=== PATIENT | female | born 1965 | race Caucasian/White ===

== ENCOUNTER 2017-01-02 17:24 | Emergency (ER) | payer BC ==
[2017-01-02 17:41] VITALS: BP 98/58
--- NOTE | 2017-01-02 18:27 | UC ---
Complaint Female HPI - HPI Summary HPI Summary: complaint of pain with urination that started 2 days ago every time she urinates she still fells that she has to urinate increase in urgency and frequency denies fever but has had chills denies back pain and abdominal pain hasn't taken any medication for pain and discomfort - History Of Current Complaint Chief Complaint: UCGU Stated Complaint: UTI Time Seen by Provider: 01/02/17 18:06 Hx Obtained From: Patient - Allergies/Home Medications Allergies/Adverse Reactions: Allergies Allergy/AdvReac Type Severity Reaction Status Date / Time Meperidine [From Demerol HCl] Allergy Unknown Verified 09/20/14 18:12 Reaction Details Home Medications: Home Medications Multiple Vitamins W/ Minerals [Multivitamin Women] 1 tab PO 01/02/17 [History] PMH/Surg Hx/FS Hx/Imm Hx Previously Healthy: Yes Cancer History Of: Denies: Breast Cancer - Surgical History Surgical History: Yes Surgery Procedure, Year, and Place: 3 c-sections, d&c, colonoscopyX2, hysterectomy - Family History Known Family History: Positive: Cardiac Disease, Hypertension Negative: Diabetes - Social History Occupation: Employed Full-time Lives: With Family Alcohol Use: Occasionally Substance Use Type: None Smoking Status (MU): Heavy Every Day Tobacco Smoker Cessation Counseling: Patient Advised to Stop Review of Systems Constitutional: Negative Skin: Negative Eyes: Negative ENT: Negative Respiratory: Negative Cardiovascular: Negative Gastrointestinal: Negative Genitourinary: Dysuria, Hematuria, Frequency, Urgency Motor: Negative Neurovascular: Negative Musculoskeletal: Negative Neurological: Negative Psychological: Negative All Other Systems Reviewed And Are Negative: Yes Physical Exam Triage Information Reviewed: Yes Appearance: No Pain Distress, Well-Nourished Vital Signs: Initial Vital Signs Temp 98.2 F 01/02/17 17:37 Pulse 83 01/02/17 17:37 Resp 18 01/02/17 17:37 BP 98/58 01/02/17 17:37 Pulse Ox 99 01/02/17 17:37 Vital Signs Reviewed: Yes Eyes: Positive: Conjunctiva Clear ENT: Positive: Pharynx normal, TMs normal Neck: Positive: No Lymphadenopathy Respiratory: Positive: Lungs clear, Normal breath sounds, No respiratory distress Cardiovascular: Positive: RRR, No Murmur, Pulses Normal Abdomen Description: Positive: Nontender, No Organomegaly, Soft. Negative: CVA Tenderness (R), CVA Tenderness (L), Distended, Guarding Bowel Sounds: Positive: Present Musculoskeletal: Positive: No Edema Neurological: Positive: Alert Psychological Exam: Normal Skin Exam: Normal Complaint Female Dx - Differential Dx/Diagnosis Differential Diagnosis/HQI/PQRI: Ureteral Stone, Urinary Tract Infection Provider Diagnoses: UTI Discharge - Discharge Plan Condition: Stable Disposition: HOME Prescriptions: Phenazopyridine TAB* [Pyridium 100 mg TAB*] 100 mg PO TID #6 tab Sulfamethox/Trimethoprim DS* [Bactrim DS 800/160 TAB*] 1 tab PO BID #6 tab Patient Education Materials: Urinary Tract Infection in Women (ED) Referrals: Oscar Carvajal MD [Primary Care Provider] - Additional Instructions: Please start antibiotic and pyridium as directed there is blood in your urine so it is possible that you have a kidney stone - if you have an increase in pain please proceed to the emergency room Increase fluids and rest Take acetaminophen or ibuprofen for fever or pain Please review your discharge instructions. If your symptoms do not improve please call your primary care provider or return to urgent care.
== END 2017-01-02 18:49 | disposition home or self-care (01) ==
LOC: UCEAST 17:24
DX: N39.0 Urinary tract infection, site not specified (principal); R31.9 Hematuria, unspecified; Z88.5 Allergy status to narcotic agent; F17.210 Nicotine dependence, cigarettes, uncomplicated
CPT/HCPCS: 81003; 99212; G0463

== ENCOUNTER 2019-05-15 22:43 | Emergency (ER) | payer BC ==
--- NOTE | 2019-05-15 23:25 | ED ---
Abdominal Pain/Female - HPI Summary HPI Summary: This patient is a 53 year old F presenting to [facility] accompanied by with a chief complaint of left shoulder blade pain since this morning 05/15/19. Symptoms aggravated by nothing. Symptoms alleviated by nothing. Patient reports since 05/12/19, gurgling in stomach (comes in spurts) and feeling sick in her stomach but reports very low pain. Pt reports this morning she woke up with pain in her left shoulder blade and though she reports she is not an anxious person she had an episode of heart racing randomly about 2-3 hours ago described as butterflies. Pt reports that this heart racing episode was quick and went away after a few seconds with no recurrence. Pt reports nausea for the past 2 weeks which worsens every time she eats. Pt reports diarrhea but denies vomiting and appetite change. Pt recalls 2 past episodes of never felt before abdominal pain where she could not breathe due to her stomach being in such pain. Pt reports pains shooting down her leg. Smokes 1+ pack of cigarettes a day. Denies any changes in diet or environment. Shx: 3 C-sections, DNC, 2 colonoscopy. MHx: kidney infection. - History of Current Complaint Chief Complaint: EDAbdPain Stated Complaint: ARM/STOMACH PAIN PER PT Time Seen by Provider: 05/15/19 23:12 Hx Obtained From: Patient Onset/Duration: Lasting Hours, Still Present Timing: Constant Pain Intensity: 4 Pain Scale Used: 0-10 Numeric Aggravating Factor(s): Nothing Alleviating Factor(s): Nothing Associated Signs and Symptoms: Positive: Nausea, Diarrhea, Other: - gurgling in stomach,feeling sick in stomach, heart racing, pain in leg. Negative: Decreased Appetite, Vomiting Allergies/Adverse Reactions: Allergies Allergy/AdvReac Type Severity Reaction Status Date / Time MS Meperidine Allergy Unknown Verified 05/15/19 23:42 [From Demerol HCl] Reaction Details Home Medications: Home Medications NK [No Home Medications Reported] 05/15/19 [History Confirmed 05/15/19] PMH/Surg Hx/FS Hx/Imm Hx Sensory History: Denies: Hx Legally Blind, Hx Deafness Opthamlomology History: Denies: Hx Legally Blind EENT History: Denies: Hx Deafness - Cancer History Hx Chemotherapy: No Hx Radiation Therapy: No - Surgical History Surgery Procedure, Year, and Place: 3 c-sections, d&c, colonoscopyX2, hysterectomy Infectious Disease History: No Infectious Disease History: Denies: Traveled Outside the [place] in Last 30 Days - Family History Known Family History: Positive: Cardiac Disease, Hypertension Negative: Diabetes - Social History Alcohol Use: Occasionally Hx Substance Use: No Substance Use Type: Reports: None Hx Tobacco Use: Yes Smoking Status (MU): Heavy Every Day Tobacco Smoker Amount Used/How Often: 1 1/2 packs/day Review of Systems Positive: Other - denies appetite change Positive: Other - heart racing Positive: Abdominal Pain - gurgling in stomach and feeling sick in her stomach , Diarrhea, Nausea. Negative: Vomiting Positive: Other - left shoulder pain, leg pain All Other Systems Reviewed And Are Negative: Yes Physical Exam - Summary Physical Exam Summary: Appearance: Well-appearing, Well-nourished, lying in bed comfortably, for vital signs are notable for borderline hypoxemia Skin: Warm, dry, no obvious rash Eyes: sclera anicteric, no conjunctival pallor ENT: mucous membranes moist, pharynx appears normal Neck: Supple, nontender Respiratory: Clear to auscultation, no signs of respiratory distress Cardiovascular: Normal S1, S2. No murmurs. Normal distal pulses in tibial and radial bilaterally. Abdomen: Soft, nontender, normal active bowel sounds present Musculoskeletal: tenderness over the superior deltoid on the left Neurological: A&Ox3, awake and alert, mentation is normal, speech is fluent and appropriate Psychiatric: affect is normal, does not appear anxious or depressed Triage Information Reviewed: Yes Vital Signs On Initial Exam: Initial Vitals Temp Pulse Resp BP Pulse Ox 98.2 F 96 15 113/82 91 05/15/19 22:45 05/15/19 22:45 05/15/19 22:45 05/15/19 22:45 05/15/19 22:45 Vital Signs Reviewed: Yes Procedures - Sedation Patient Received Moderate/Deep Sedation with Procedure: No Diagnostics - Vital Signs Vital Signs Temp Pulse Resp BP Pulse Ox 05/15/19 22:45 98.2 F 96 15 113/82 91 - Laboratory Result Diagrams: 05/16/19 00:30 05/16/19 00:30 Lab Statement: Any lab studies that have been ordered have been reviewed, and results considered in the medical decision making process. - Radiology Chest X-Ray Radiology Interpretation Completed By: ED Physician Summary of Radiographic Findings: Per ED Physician,. No acute process. Pending official report. - Ultrasound Transvaginal US Ultrasound Interpretation Completed By: Radiologist Summary of Ultrasound Findings: Per radiologist,. Status post hysterectomy. Moderate right hydrosalpinx. No other adnexal pathology. ED physician has reviewed this imaging report. - EKG 0029 Cardiac Rate: NL - 71 BPM Summary of EKG Findings: NSR at 71 BPM, P waves, QRS complex, and T waves are within normal limits, T waves and intervals are normal, no ischemic changes. This is a normal EKG. Abdominal Pain Fem Course/Dx - Course Course Of Treatment: This patient is a 53 year old F presenting to [facility] accompanied by with a chief complaint of left shoulder blade pain since this morning 05/15/19. Patient reports since 05/12/19, gurgling in stomach (comes in spurts) and feeling sick in her stomach but reports very low pain. Pt reports this morning she woke up with pain in her left shoulder blade and reports episode of heart racing randomly about 2-3 hours ago described as butterflies. Pt reports that this heart racing episode was quick and went away after a few seconds with no recurrence. Pt reports nausea for the past 2 weeks which worsens every time she eats. Pt reports diarrhea but denies vomiting and appetite change. Pt recalls 2 past episodes of never felt before abdominal pain where she could not breathe due to her stomach being in such pain. Pt reports pains shooting down her leg. Smokes 1+ pack of cigarettes a day. Physical Exam Findings show no abnormalities except for vital signs are notable for borderline hypoxemia, tenderness over the superior deltoid on the left. An EKG reveals NSR at 71 BPM, P waves, QRS complex, and T waves are within normal limits, T waves and intervals are normal, no ischemic changes. This is a normal EKG. CXR reveals no acute process. Transvaginal US reveals Status post hysterectomy. Moderate right hydrosalpinx. No other adnexal pathology. Test results with no significant abnormalities expect for RBC 5.10 H, Hgb 16.5 H, Hct 48 H, MCH 32 H. Urinalysis shows Ur Specific [place] 1.005 L, Urine Blood 1 + A, Ur Squamous Epith Cells Present A, Urine Ascorbic Acid A. Patient will be discharged and follow up with Dr. Carvajal. - Diagnoses Provider Diagnoses: Pelvic pain, Shoulder pain Discharge ED - Sign-Out/Discharge Documenting (check all that apply): Patient Departure - discharge - Discharge Plan Condition: Good Disposition: HOME Patient Education Materials: Pelvic Pain in Women (ED), Arthralgia (ED), Hypoxia (ED) Referrals: Oscar Carvajal MD [Primary Care Provider] - 1 Week (if not improving) Additional Instructions: We did not find a specific cause for your symptoms with the testing tonight, but we did make sure it is not something serious like a heart problem or serious intra-abdominal infection. If you continue to have trouble, please contact your PCP for further evaluation. We did find that your blood oxygen level is a bit on the low side. This is likely due to your smoking, and I would discuss this with your doctor as if it drops further you will definitely need further testing and treatment. - Billing Disposition and Condition Condition: GOOD Disposition: Home - Attestation Statements Document Initiated by Rosy: Yes Documenting Scribe: Zhanna Ballard Provider For Whom Rosy is Documenting (Include Credential): Dr. Curry Baron MD Scribe Attestation: I, Zhanna Ballard, scribed for Dr. Curry Baron MD on 05/24/19 at 0002. Scribe Documentation Reviewed: Yes Provider Attestation: The documentation as recorded by the Zhanna orr accurately reflects the service I personally performed and the decisions made by me, Dr. Curry Baron MD Status of Scribe Document: Viewed
[2019-05-16 00:21] LABS: Urine Appearance Clear; Urine Bacteria Absent (Absent); Urine Bilirubin Negative (Negative); Urine Blood 1+ (Negative); Urine Color Straw; Urine Glucose Negative (Negative); Urine Ketones Negative (Negative); Urine Nitrite Negative (Negative); Urine Protein Negative (Negative); Urine Red Blood Cell Trace(0-2/hpf) (Absent); Urine Specific Gravity 1.005 (1.010-1.030); Urine Squamous Epithelial Cell Present (Absent); Urine Urobilinogen Negative (Negative); Urine White Blood Cell Absent (Absent)
[2019-05-16 00:36] LABS: ABS Basophils 0.1 10^3/ul (0-0.2); ABS Eosinophils 0.2 10^3/ul (0-0.6); ABS Lymphocytes 2.3 10^3/ul (1.0-4.8); ABS Monocytes 0.6 10^3/ul (0-0.8); ABS Neutrophils 6.5 10^3/ul (1.5-7.7); Eosinophil % 1.7 %; Hematocrit 48 % (35-47); Hemoglobin 16.5 g/dL (12.0-16.0); Lymphocyte % 23.5 %; Mean Corpuscular HGB Conc 34 g/dL (31-36); Mean Corpuscular Hemoglobin 32 pg (27-31); Mean Corpuscular Volume 94 fL (80-97); Mean Platelet Volume 8.3 fL (7.4-10.4); Nucleated Red Blood Cells % 0.1; Platelet Count 226 10^3/uL (150-450); Red Cell Distribution Width 14 % (10-15); White Blood Count 9.7 10^3/uL (3.5-10.8)
[2019-05-16 00:54] LABS: Albumin 4.4 g/dL (3.2-5.2); Albumin/Globulin Ratio 1.7 (1-3); BUN/Creatinine Ratio 18.9 (8-20); C Reactive Protein 3.73 mg/L (<8.01); Calcium 9.8 mg/dL (8.6-10.3); EGFR Non-African American 81.8 (>60); Globulin 2.6 g/dL (2-4); Potassium 4.1 mmol/L (3.5-5.0); Total Bilirubin 0.5 mg/dL (0.2-1.0)
[2019-05-16 01:36] VITALS: BP 108/71
== END 2019-05-16 01:30 | disposition home or self-care (01) ==
LOC: ED 22:43
DX: M25.512 Pain in left shoulder (principal); R10.2 Pelvic and perineal pain; F17.200 Nicotine dependence, unspecified, uncomplicated; Z88.5 Allergy status to narcotic agent; Z90.710 Acquired absence of both cervix and uterus
CPT/HCPCS: 36415; 71046; 76830; 80053; 81003; 81015; 83690; 84484; 85025; 85379; 86140; 93005; 99282